=== PATIENT | female | born 1965 | race Two or more races ===

== ENCOUNTER → 2019-02-25 10:25 | Outpatient (CLI) | payer OTHER, SELFPAY ==
--- NOTE | 2019-02-25 10:35 | XR_ITS ---
EXAM: XR cervical spine 5V HISTORY: Neck pain with right upper reticulata of the ITS.REASON: RT CERVICAL RADICULOPATHY ORDERING PHYSICIAN: Moses Jackman MD PATIENT AGE: 53 years COMPARISON: 09/27/2010 FINDINGS: There is 2 mm anterolisthesis of C3 on 4 and C4 on C5. This is without prevertebral soft tissue swelling and may be physiologic in nature. The disc spaces are well-preserved. There is some mild foraminal narrowing on the right at C2-C3, C3-C4 and C4-C5 and on the left at C2-C3 and C3 C4 from uncovertebral and facet hypertrophic changes. Facet arthropathy with hypertrophy is present at C2-C7. There is a well-circumscribed lucency of the right parieto-occipital area skull as seen on the lateral view IMPRESSION: 1. Mild cervical spondylosis with facet and uncovertebral hypertrophy with bilateral foraminal narrowing. See above for details. 2. Well-circumscribed 5 mm lucency is noted in the parieto-occipital area on the lateral view of the C-spine. This is of unknown etiology and may be better evaluated with CT of the head if clinically desired
== END ==
PROVIDERS: PCP Internal Medicine Adolescent Medicine; Visit Provider Internal Medicine Adolescent Medicine
DX: M54.12 Radiculopathy, cervical region (principal)
CPT/HCPCS: 72050